=== PATIENT | male | born 1940 | race Caucasian/White ===

== ENCOUNTER 2023-10-12 11:50 | Emergency (ER) | payer SELFPAY ==
[2023-10-12] MEDS ORDERED: LIDOCAINE 2% W/EPI 1:200,000 MPF 20 ML VIAL IM ONE (12:02)
[2023-10-12] MEDS ORDERED: TDAP (DIPHTH,PERTUSS(ACELL),TET VAC) 0.5 ML VIAL IMVAC ONE (13:03)
--- NOTE | 2023-10-12 13:17 | EDPHYS ---
Physician Documentation [facility] Name: Jeremias Reynoso Age: 83 yrs Sex: Male : 1940 Arrival Date: 10/12/2023 Time: 11:50 Bed 14 Private MD: ED Physician Timothy Amaya HPI: 10/11 12:08 This 83 yrs old Male presents to ER via Ambulatory with complaints of Laceration To Leg.rt 12:08 Patient presents to the ED with a laceration to the right leg. 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 Denies other injury, acute complaints, states that he is not up-to-date on his tetanus immunization. Denies other acute complaints at this time, symptoms are moderate in severity, no other aggravating alleviating factors.. Historical: - Allergies: 11:57 No Known Allergies; aa5 - Home Meds: 11:57 Aspirin Oral [Active]; aa5 - PMHx: 11:57 None; aa5 - PSHx: 11:57 Tonsillectomy; aa5 - Immunization history:: Last tetanus immunization: unknown. - Infectious Disease History:: Denies. - Social history:: Smoking status: Patient denies any tobacco usage or history of. - Family history:: not pertinent. ROS: 12:08 Constitutional: Negative for fever, chills, and weight loss, Cardiovascular: Negative rt for chest pain, palpitations, and edema, Respiratory: Negative for shortness of breath, cough, wheezing, and pleuritic chest pain, Abdomen/GI: Negative for abdominal pain, nausea, vomiting, diarrhea, and constipation, Neuro: Negative for headache, weakness, numbness, tingling, and seizure, 12:08 Skin: Positive for laceration(s), Negative for abrasions, Exam: 12:08 Constitutional: This is a well developed, well nourished patient who is awake, alert, rt and in no acute distress. Chest/axilla: Normal chest wall appearance and motion. Nontender with no deformity. No lesions are appreciated. Cardiovascular: Regular rate and rhythm with a normal S1 and S2. No gallops, murmurs, or rubs. Normal PMI, no JVD. No pulse deficits. Respiratory: Lungs have equal breath sounds bilaterally, clear to auscultation and percussion. No rales, rhonchi or wheezes noted. No increased work of breathing, no retractions or nasal flaring. Abdomen/GI: Soft, non-tender, with normal bowel sounds. No distension or tympany. No guarding or rebound. No evidence of tenderness throughout. Neuro: Awake and alert, GCS 15, oriented to person, place, time, and situation. Cranial nerves II-XII grossly intact. Motor strength 5/5 in all extremities. Sensory grossly intact. Cerebellar exam normal. Normal gait. 12:08 Musculoskeletal/extremity: There is a 6 cm laceration on the right lower leg distal to the knee joint with a small, 2 cm fascial defect, no muscle body, tendon lacerations identified, no foreign bodies identified, no signs of open joint.. Vital Signs: 11:53 BP 167 / 85; Pulse 72; Resp 18 S; Temp 97.5(TE); Pulse Ox 96% on R/A; Weight 81.65 kg aa5 (R); Height 5 ft. 11 in. (R); 13:00 BP 157 / 91; Pulse 71; Resp 16; Pulse Ox 95% on R/A; db 14:00 BP 155 / 67; Pulse 69; Resp 16; Pulse Ox 98% on R/A; db 11:53 Body Mass Index 25.10 (81.65 kg, 180.34 cm) aa5 Laceration: 13:51 Wound Repair of 6cm ( 2.4in ) subcutaneous laceration to right leg. Linear shaped.. rt Small fascial defect. Distal neuro/vascular/tendon intact. Anesthesia: Local anesthetic administered with 2 mls of 1% lidocaine w/ Epi. Wound prep: Copious irrigation. Skin closed with 6 2-0 Prolene. Dressed with 4x4's. Patient tolerated well. MDM: 11:55 Patient medically screened. rt 13:51 Differential diagnosis: Laceration. Data reviewed: vital signs, nurses notes. Test rt considered but Not performed: X-ray: No clinical evidence to suggest bony abnormality, open joint, x-ray not indicated. Counseling: I had a detailed discussion with the patient and/or guardian regarding the historical points, exam findings, and any diagnostic results supporting the discharge/admit diagnosis, the need for outpatient follow up. Response to treatment: the patient's symptoms have markedly improved after treatment. 10/11 11:58 Order name: Dressing - Wound; Complete Time: 12:10 rt 10/11 11:58 Order name: Gloves, Sterile; Complete Time: 13:07 rt 08 11:58 Order name: Setup Suture Tray; Complete Time: 13:07 rt 08 11:58 Order name: Wound Care; Complete Time: 13:07 rt Administered Medications: 12:10 Drug: Lidocaine-Epinephrine Infiltration -1%: (1:100,000) 5 ml 20 ml Infiltration once; db to bedside {Note: given TO DR. AMAYA.} Volume: 20 ml; Route: Infiltration; 13:14 Follow up: Response: No adverse reaction db 13:07 Drug: Boostrix Tdap IM 0.5 ml IM once; as a single dose Route: IM; Site: left deltoid; db 13:13 Follow up: Response: (VIS) Vaccine information sheet provided today. Questions and/or db concerns addressed. VIS edition date: Oct 05, 2020.; No adverse reaction Disposition Summary: 10/12/23 13:17 Discharge Ordered Notes: Location: Home rt Problem: new rt Symptoms: have improved rt Condition: Stable rt Diagnosis - Laceration to right lower leg rt Followup: rt - With: Private Physician - When: 10 - 14 days - Reason: Staple/Suture removal Discharge Instructions: - Discharge Summary Sheet rt - Laceration Care, Adult rt Forms: - Medication Reconciliation Form rt - Antibiotic Education rt - Prescription Opioid Use rt - Patient Portal Instructions rt - Leadership Thank You Letter rt Signatures: Gina Lopez RN RN aa5 Carlene Viramontes RN RN Timothy Koch MD MD rt
--- NOTE | 2023-10-12 13:17 | ER ---
Nurse's Notes [facility] Name: Jeremias Reynoso Age: 83 yrs Sex: Male : 1940 Arrival Date: 10/12/2023 Time: 11:50 Bed 14 Private MD: Diagnosis: Laceration to right lower leg Presentation: 10/11 11:53 Chief complaint: Patient states: "I cut my leg with sheet metal on a sharp edge". aa5 Laceration noted to right lower leg, bleeding controlled, dressing in place. 11:53 Method Of Arrival: Ambulatory aa5 11:53 Acuity: SUSANNE 3 aa5 11:53 Coronavirus screen: At this time, the client does not indicate any symptoms associated aa5 with coronavirus-19. Ebola Screen: Patient denies travel to an Ebola-affected area in the 21 days before illness onset. Initial Sepsis Screen: Does the patient meet any 2 criteria? No. Patient's initial sepsis screen is negative. Does the patient have a suspected source of infection? No. Patient's initial sepsis screen is negative. Risk Assessment: Do you want to hurt yourself or someone else? Patient reports no desire to harm self or others. Onset of symptoms was October 2023. Triage Assessment: 14:16 General: Appears in no apparent distress. comfortable, Behavior is calm, cooperative. db Historical: - Allergies: 11:57 No Known Allergies; aa5 - Home Meds: 11:57 Aspirin Oral [Active]; aa5 - PMHx: 11:57 None; aa5 - PSHx: 11:57 Tonsillectomy; aa5 - Immunization history:: Last tetanus immunization: unknown. - Infectious Disease History:: Denies. - Social history:: Smoking status: Patient denies any tobacco usage or history of. - Family history:: not pertinent. Screenin:54 [facility] ED Fall Risk Assessment (Adult) History of falling in the last 3 months, db including since admission No falls in past 3 months (0 pts) Confusion or Disorientation No (0 pts) Intoxicated or Sedated No (0 pts) Impaired Gait No (0 pts) Mobility Assist Device Used No (0 pt) Altered Elimination No (0 pt) Score/Fall Risk Level 0 - 2 = Low Risk Oriented to surroundings, Maintained a safe environment. Abuse screen: Denies threats or abuse. Denies injuries from another. Nutritional screening: No deficits noted. Tuberculosis screening: No symptoms or risk factors identified. Assessment: 11:53 Reassessment: Patient appears in no apparent distress at this time. Patient and/or db family updated on plan of care and expected duration. Pain level reassessed. Patient is alert, oriented x 3, equal unlabored respirations, skin warm/dry/pink. General: Appears in no apparent distress. comfortable. Pain: Complains of pain in right leg. Neuro: Level of Consciousness is awake, alert, obeys commands, Oriented to person, place, time, situation. Respiratory: Airway is patent Respiratory effort is even, unlabored, Respiratory pattern is regular, symmetrical. Derm: Wound noted right leg. Musculoskeletal: Capillary refill < 3 seconds, Range of motion: intact in all extremities. 12:10 Reassessment: PT LEG CLEANED WITH SALINE AND IODINE. LACERATION SUPPLIES AT BEDSIDE. db 13:00 Reassessment: Patient appears in no apparent distress at this time. Patient and/or db family updated on plan of care and expected duration. Pain level reassessed. Patient is alert, oriented x 3, equal unlabored respirations, skin warm/dry/pink. WOUND DRESSED AND NEURO INTACT. Vital Signs: 11:53 BP 167 / 85; Pulse 72; Resp 18 S; Temp 97.5(TE); Pulse Ox 96% on R/A; Weight 81.65 kg aa5 (R); Height 5 ft. 11 in. (R); 13:00 BP 157 / 91; Pulse 71; Resp 16; Pulse Ox 95% on R/A; db 14:00 BP 155 / 67; Pulse 69; Resp 16; Pulse Ox 98% on R/A; db 11:53 Body Mass Index 25.10 (81.65 kg, 180.34 cm) aa5 ED Course: 11:52 Patient arrived in ED. im 11:54 Timothy Amaya MD is Attending Physician. rt 11:55 Patient has correct armband on for positive identification. Bed in low position. Call db light in reach. Side rails up X 1. Pulse ox on. NIBP on. Pillow given. 12:00 Triage completed. aa5 12:00 Carlene Viramontes RN is Primary Nurse. db 14:00 Assist provider with laceration repair on right leg using sutures. Set up tray. db Performed by Timothy Amaya MD Patient tolerated well. Dressings: Adaptic Kerlix X 1; right leg. 14:14 Provided Education on: DISCHARGE AND FOLLOWUP. db 14:14 Patient did not have IV access during this emergency room visit. db 14:16 Arm band placed on Patient placed in an exam room. db Administered Medications: 12:10 Drug: Lidocaine-Epinephrine Infiltration -1%: (1:100,000) 5 ml 20 ml Infiltration once; db to bedside {Note: given TO DR. AMAYA.} Volume: 20 ml; Route: Infiltration; 13:14 Follow up: Response: No adverse reaction db 13:07 Drug: Boostrix Tdap IM 0.5 ml IM once; as a single dose Route: IM; Site: left deltoid; db 13:13 Follow up: Response: (VIS) Vaccine information sheet provided today. Questions and/or db concerns addressed. VIS edition date: Oct 05, 2020.; No adverse reaction Medication: 14:14 Vaccine Information Statement (VIS) provided today. Questions and/or concerns db addressed. VIS edition date: October 05, 2017. Outcome: 13:17 Discharge ordered by . rt 14:14 Discharged to home ambulatory, with family, db 14:14 Condition: stable 14:14 Discharge instructions given to patient, family, Instructed on 14:14 Instructed on discharge instructions, follow up and referral plans. db 14:16 Patient left the ED. db Signatures: Gina Lopez, RN RN aa5 Carlene Viramontes RN RN db [place], Ryan, MD MD rt Nory Yu im
[2023-10-12 14:25] VITALS: TEMP 97.5
[2023-10-12 14:27] VITALS: BP 155/67; O2SAT 98
== END 2023-10-12 14:16 | disposition home or self-care (01) ==
LOC: ER 11:50
PROC: 0HQKXZZ Repair Right Lower Leg Skin, External Approach (ICD-10-PCS; principal; 2023-10-12)
DX: S81.811A Laceration without foreign body, right lower leg, initial encounter (principal)
CPT/HCPCS: 12001; 96372; 99284